=== PATIENT | female | born 1965 | race Caucasian/White ===

== ENCOUNTER 2016-08-03 19:52 | Inpatient (IN) | payer MEDICARE, OTHER ==
[~2016-08-03] VITALS: Ht 167.6 cm; Wt 125.9 kg
[2016-08-03 20:49] LABS: BASO # 0.1 (0.0-0.2); BASO % 0.5 % (0.0-2.0); EOS # 0.1 (0.0-0.7); EOS % 0.6 % (0-4.0); GRAN # 9.2 (1.4-6.5); GRAN % 80.3 % (42.2-75.2); HEMATOCRIT 44.7 % (37.0-47.0); HEMOGLOBIN 14.8 g/dl (12.5-16.0); LYMPH # 1.2 (1.2-3.4); LYMPH % 10.3 % (20.0-51.0); MEAN CELL VOLUME 95 fl (80.0-100.0); MEAN CORPUSCULAR HEMOGLOBIN 31 pg (27.0-31.0); MEAN CORPUSCULAR HGB CONC 33 g/dl (33.0-37.0); MEAN PLATELET VOLUME 9.7 fl (7.4-10.4); MONO # 0.9 (0.1-0.6); PLATELET COUNT 283 K/mm3 (130-400); RED BLOOD COUNT 4.73 M/mm3 (4.10-5.30); REDCELL DISTRIBUTION WIDTH-CV 14.4 % (11.5-14.5); WHITE BLOOD COUNT 11.5 K/mm3 (4.8-10.8)
[2016-08-03 20:59] LABS: ADJUSTED CALCIUM 9.2 mg/dL (8.4-10.2); ALANINE AMINOTRANSFERASE 33 U/L (9-52); ALBUMIN 4.5 gm/dL (3.5-5.0); ALKALINE PHOSPHATASE 121 U/L (50-136); ANION GAP 13 mmol/L (7-16); BILIRUBIN,TOTAL 0.9 mg/dL (0.0-1.0); BLOOD UREA NITROGEN 17 mg/dL (7-17); CALCIUM 9.6 mg/dL (8.4-10.2); CARBON DIOXIDE 29 mmol/L (22-30); CHLORIDE 97 mmol/L (98-107); CREATININE, serum 0.74 mg/dL (0.52-1.25); GLUCOSE 123 mg/dL (74-106); LIPASE 68 U/L (23-300); POTASSIUM 3.9 mmol/L (3.4-5.0); SODIUM 139 mmol/L (137-145); TOTAL PROTEIN 8.2 gm/dL (6.4-8.2)
[2016-08-03 21:06] LABS: C-REACTIVE PROTEIN < 0.5 mg/dL (0.0-0.9)
[2016-08-03] MEDS ORDERED: ELIQUIS 5MG PO (21:07)
[2016-08-03] MEDS ORDERED: CULTURELLE CAP1 EAC1 PO (21:07)
[2016-08-03] MEDS ORDERED: NEURONTIN300 MG/CAP PO (21:08)
[2016-08-03] MEDS ORDERED: KLOR-CON M2020 MEQ PO (21:08)
[2016-08-03] MEDS ORDERED: TIROSINT150 MC1 PO (21:09)
[2016-08-03] MEDS ORDERED: TENORMIN 2525 MG/TAB PO (21:10)
[2016-08-03] MEDS ORDERED: CALCIUM 600/VIT1 CA1 PO (21:10)
[2016-08-03] MEDS ORDERED: LIPITOR 10MG10 MG PO (21:10)
[2016-08-03] MEDS ORDERED: EFFEXOR-XR150 MG PO (21:11)
[2016-08-03] MEDS ORDERED: NORVASC 10MG10 MG PO (21:12)
[2016-08-03] MEDS ORDERED: PROTONIX 40MG T40 MG PO (21:12)
[2016-08-03] MEDS ORDERED: DULCOLAX TAB5 MG PO (21:13)
[2016-08-03 21:59] LABS: PH 6 (5-8); SQUAMOUS EPITHELIAL 0-2 /hpf; URINE APPEARANCE Clear; URINE BACTERIA None Seen /hpf; URINE BILIRUBIN Negative (NEGATIVE); URINE BLOOD Negative (NEGATIVE); URINE COLOR Yellow; URINE GLUCOSE Negative (NEGATIVE); URINE KETONE Negative (NEGATIVE); URINE UROBILINOGEN Negative (NEGATIVE); URINE WBC 0-2 /hpf
[2016-08-04 05:24] VITALS: BP 127/90; PULSE 100; TEMP 98.5
[2016-08-04 09:14] VITALS: BP 113/76; PULSE 101; TEMP 97.9
[2016-08-04 13:53] VITALS: BP 114/73; PULSE 70; TEMP 97
[2016-08-04 16:53] VITALS: BP 113/71; PULSE 92; TEMP 97.3
[2016-08-04 21:25] VITALS: BP 108/58; PULSE 70; TEMP 98
[2016-08-05] VITALS (7 sets, daily range): BP systolic 88–131; BP diastolic 39–73; PULSE 63–94; TEMP 98–98.5
[2016-08-05 13:24] LABS: MEAN CELL VOLUME 99 fl (80.0-100.0); MEAN CORPUSCULAR HEMOGLOBIN 31 pg (27.0-31.0); MEAN CORPUSCULAR HGB CONC 32 g/dl (33.0-37.0); MEAN PLATELET VOLUME 10.3 fl (7.4-10.4); PLATELET COUNT 206 K/mm3 (130-400); RED BLOOD COUNT 4.06 M/mm3 (4.10-5.30); REDCELL DISTRIBUTION WIDTH-CV 14.5 % (11.5-14.5); WHITE BLOOD COUNT 4.8 K/mm3 (4.8-10.8)
[2016-08-05 13:25] LABS: HEMOGLOBIN 12.6 g/dl (12.5-16.0)
[2016-08-05 14:13] LABS: CREATININE, serum 0.66 mg/dL (0.52-1.25); POTASSIUM 3.3 mmol/L (3.4-5.0)
[2016-08-06 02:00] VITALS: BP 103/59; PULSE 87; TEMP 98.4
[2016-08-06 06:29] VITALS: BP 121/77; PULSE 88; TEMP 98.3
[2016-08-06 10:32] VITALS: BP 121/79; PULSE 72; TEMP 97.7
[2016-08-06 14:19] VITALS: BP 95/58; PULSE 69; TEMP 98.1
[2016-08-06 18:24] VITALS: BP 122/71; PULSE 68; TEMP 98.2
[2016-08-06 20:11] VITALS: BP 133/77; PULSE 73; TEMP 98.7
[2016-08-07 02:11] VITALS: BP 118/62; PULSE 67; TEMP 98.3
[2016-08-07 06:07] VITALS: BP 129/82; PULSE 85; TEMP 98.4
[2016-08-07 10:30] VITALS: BP 126/74; PULSE 88; TEMP 98.1
== END 2016-08-07 13:12 | disposition home or self-care (01) | DRG 389 ==
LOC: COL.ER 19:52 → SURG 22:04
PROVIDERS: Emergency Medicine; Surgery
PROC: 0D9670Z Drainage of Stomach with Drainage Device, Via Natural or Artificial Opening (ICD-10-PCS; principal; 2016-08-03)
DX: K56.5 Intestinal adhesions [bands] with obstruction (postinfection) (principal); Z68.41 Body mass index [BMI] 40.0-44.9, adult; I10 Essential (primary) hypertension; K31.84 Gastroparesis; K21.9 Gastro-esophageal reflux disease without esophagitis; E66.8 Other obesity; Z93.3 Colostomy status; Z86.711 Personal history of pulmonary embolism; Z88.0 Allergy status to penicillin; Z85.030 Personal history of malignant carcinoid tumor of large intestine
CPT/HCPCS: OP; C9113; G0378; J1170; J1200; J1650; J2405; J7030; Q9967